=== PATIENT | male | born 1950 | race Caucasian/White ===

== ENCOUNTER 2016-06-30 04:12 | Observation (INO) | payer OTHER ==
[~2016-06-30] VITALS: Ht 170.2 cm; Wt 91.6 kg
[~2016-06-30 04:12] MED LIST: BUPROBAN150 MG PO; BUPROPION XL300 MG PO; CYMBALTA60 MG PO; ENDOCET 7.5-321 EACH PO; FLEXERIL10 MG PO; GABAPENTIN300 MG PO; GEMFIBROZIL600 MG PO; HYDROCHLOROTHIA25 MG PO; IBUPROFEN800 MG PO; LEVOTHROID,S0.175 M1 PO; LEVOTHYROXINE175 MCG PO; LEVOTHYROXINE200 MC1 PO; LISINOPRIL10 MG PO; LOVASTATIN20 MG PO; NEURONTIN300 MG PO; OMEPRAZOLE20 MG PO; PERCOCET 10/1 TABLET PO; PERCOCET 7.51 TABLET PO; PRILOSEC20 MG PO; PROMETHAZINE HC25 M1 PO; SEROQUEL XR300 MG PO; SEROQUEL300 MG PO; TAMSULOSIN HCL0.4 MG PO; TIZANIDINE HCL4 MG PO; VALIUM10 MG PO; WELLBUTRIN XL300 MG PO
[2016-06-30 05:41] LABS: HEMATOCRIT 35.3 % (38.0-50.0); MCH 30.1 PG (29.0-34.0); MCV 93.9 FL (86-99); MEAN PLAT.VOLUME 11.2 uM^3 (9.0-12.4); NRBC (%) 0.3 /100 WBC (0-0); PLATELET COUNT 208 K/uL (156-360); RBC DIS.WIDTH-CV 15.6 % (11.8-14.6); RBC DIS.WIDTH-SD 53.3 % (39-53); RED BLOOD COUNT 3.76 M/uL (4.00-5.50); WHITE BLOOD COUNT 6.2 K/uL (4.1-10.2)
[2016-06-30 05:53] LABS: CHLORIDE 101 mEq/L (99-109); POTASSIUM 3.4 mEq/L (3.7-5.4); SODIUM 141 mEq/L (136-147)
[2016-06-30 05:54] LABS: GLUCOSE 126 mg/dL (70-99)
[2016-06-30 05:56] LABS: ANION GAP 12 MEQ/L (2-14)
[2016-06-30 05:58] LABS: GFR ESTIMATE (CALCULATED) > 59 mL/min/
[2016-06-30 05:59] LABS: UREA NITROGEN (BUN) 11 mg/dL (9-23)
[2016-06-30 06:03] LABS: TROP-I INTERPRETATION NEGATIVE; TROPONIN-I < 0.01 ng/mL (0.0-0.30)
[2016-06-30 06:14] LABS: INFLUENZA A VIRAL ANTIGEN NEGATIVE; INFLUENZA B VIRAL ANTIGEN POSITIVE
[2016-06-30] MEDS ORDERED: SERTRALINE HCL100 MG PO (08:48)
[2016-06-30] MEDS ORDERED: ADVAIR 250/501 DISK IH (08:48)
[2016-06-30] MEDS ORDERED: INDOCIN SR75 MG PO (08:49)
[2016-06-30 10:02] VITALS: BP 187/109
[2016-06-30 14:29] LABS: TROP-I INTERPRETATION NEGATIVE; TROPONIN-I 0.07 ng/mL (0.0-0.30)
[2016-06-30 14:47] VITALS: BP 189/92
[2016-06-30 20:28] LABS: TROP-I INTERPRETATION NEGATIVE; TROPONIN-I < 0.01 ng/mL (0.0-0.30)
[2016-06-30 20:45] VITALS: BP 139/104
[2016-06-30 23:45] VITALS: BP 163/91
[2016-07-01 03:44] VITALS: BP 146/70
[2016-07-01 08:58] VITALS: BP 181/90
[2016-07-01] MEDS ORDERED: AZITHROMYCIN500 M1 PO (10:09)
[2016-07-01] MEDS ORDERED: OSELTAMIVIR PHO75 MG PO (10:10)
[2016-07-01 12:03] VITALS: BP 176/76
== END 2016-07-01 12:48 | disposition home or self-care (01) ==
LOC: EME 04:12 → EDOF 07:41 → 5WEST 07:41 → EDOF 07:41 → 5WEST 09:59
PROVIDERS: Emergency Medicine; Internal Medicine
DX: J10.1 Influenza due to other identified influenza virus with other respiratory manifestations (principal); J44.1 Chronic obstructive pulmonary disease with (acute) exacerbation; J96.01 Acute respiratory failure with hypoxia; E87.6 Hypokalemia; J45.909 Unspecified asthma, uncomplicated; G89.4 Chronic pain syndrome; D64.9 Anemia, unspecified; K21.9 Gastro-esophageal reflux disease without esophagitis; I10 Essential (primary) hypertension; F32.9 Major depressive disorder, single episode, unspecified; F41.9 Anxiety disorder, unspecified; F17.200 Nicotine dependence, unspecified, uncomplicated
CPT/HCPCS: 71020; 71250; 80048; 84484; 85027; 87040; 87070; 87205; 87502; 93005; 94640; 94640 76; 94760; 94799; 99202; 99281; 99284; G0378; J0696; J1650; J2930; J7030; J7050; J7512

== ENCOUNTER → 2016-07-18 | Outpatient (CLI) | payer OTHER ==
[~2016-07-18] MED LIST changes: +ADVAIR 250/501 DISK IH; +AZITHROMYCIN500 M1 PO; +INDOCIN SR75 MG PO; +OSELTAMIVIR PHO75 MG PO; +SERTRALINE HCL100 MG PO
== END | disposition home or self-care (01) ==
LOC: RAD 09:07
DX: J98.11 Atelectasis (principal); R91.8 Other nonspecific abnormal finding of lung field; R93.8 Abnormal findings on diagnostic imaging of other specified body structures
CPT/HCPCS: 71020

== ENCOUNTER → 2017-01-15 | Outpatient (CLI) | payer OTHER | END | disposition home or self-care (01) | LOC: RAD 11:49 | DX: M43.8X6 Other specified deforming dorsopathies, lumbar region (principal) | CPT/HCPCS: 72110 ==

== ENCOUNTER → 2017-04-16 | Outpatient (CLI) | payer OTHER | END | disposition home or self-care (01) | LOC: RAD 14:00 | DX: M17.0 Bilateral primary osteoarthritis of knee (principal); I70.203 Unspecified atherosclerosis of native arteries of extremities, bilateral legs | CPT/HCPCS: 73564; 73565 ==